=== PATIENT | male | born 1985 | race Caucasian/White ===

== ENCOUNTER 2024-01-05 10:39 | Emergency (ER) | payer BC ==
[2024-01-05 11:28] LABS: #Basophils 0.1 thou/uL (0.0-0.2); #Eosinphils 0.2 thou/uL (0.0-0.7); #Lymphocytes 1.4 thou/uL (1.20-3.40); #Monocytes 0.5 thou/uL (0.11-0.59); #Neutrophils 2.7 thou/uL (1.40-6.50); %Basophils 1.9 % (0.0-1.0); %Eosinophils 3.1 % (0.0-10.0); %Lymphocytes 29.2 % (21.0-51.0); %Monocytes 10.5 % (0.0-10.0); %Neutrophils 55.4 % (42.0-75.0); Hematocrit 43.6 % (42.0-52.0); Hemoglobin 13.6 g/dL (14.0-18.0); Mean Corpuscular HGB CONC 31.3 g/dL (32.0-36.0); Mean Corpuscular Hemoglobin 27.7 pg (27.0-31.0); Mean Corpuscular Volume 88.5 fl (78.0-98.0); Mean Platelet Volume 6.8 fL (7.4-10.4); Platelet Count 208 10x3/uL (130-400); Red Blood Cell (RBC) Count 4.93 mill/uL (4.70-6.10); White Blood Cell (WBC) Count 4.9 10x3/uL (4.8-10.8)
[2024-01-05 11:43] LABS: ALT (SGPT) 18 U/L (8-55); AST (SGOT) 15 U/L (5-34); Albumin 4.1 g/dL (3.5-5.0); Alkaline Phosphatase 68 U/L (40-110); Anion Gap 18 mmol/L (10-20); BUN (Urea Nitrogen) 11 mg/dL (8.9-20.6); Bilirubin, Total 0.7 mg/dL (0.2-1.2); Calc. Creatinine Clearance 0 mL/min (70-130); Calcium 9.4 mg/dL (7.8-10.44); Carbon Dioxide 21 mmol/L (22-29); Chloride 99 mmol/L (98-107); Estimated GFR 89; Globulin 2.6 g/dL (2.4-3.5); Magnesium 1.9 mg/dL (1.6-2.6); Potassium 4.2 mmol/L (3.5-5.1); Protein, Total 6.7 g/dL (6.0-8.3); Sodium 134 mmol/L (136-145)
[2024-01-05 11:44] LABS: Glucose 509 mg/dL (70-105)
[2024-01-05] MEDS ORDERED: Piperacillin/Tazobactam 4.5 GM VIAL ONE (11:56)
[2024-01-05] MEDS ORDERED: Insulin Regular, Human 100 UNIT/ML 10 ML VIAL ONE (11:56)
[2024-01-05] MEDS ORDERED: Sodium Chloride 0.9% 100 ML ONE (11:57)
[2024-01-05] MEDS ORDERED: Vancomycin 1 GM VIAL ONE (12:43)
[2024-01-05] MEDS ORDERED: Sodium Chloride 0.9% 250 ML 500 ML ONE (12:44)
== END 2024-01-05 17:00 | disposition short-term general hospital (02) ==
LOC: MADERS 10:39
DX: E11.621 Type 2 diabetes mellitus with foot ulcer (principal); L97.419 Non-pressure chronic ulcer of right heel and midfoot with unspecified severity; I10 Essential (primary) hypertension; E11.40 Type 2 diabetes mellitus with diabetic neuropathy, unspecified; F17.210 Nicotine dependence, cigarettes, uncomplicated; E78.5 Hyperlipidemia, unspecified; Z79.84 Long term (current) use of oral hypoglycemic drugs; Z79.899 Other long term (current) drug therapy
CPT/HCPCS: 36416; 80053; 83605; 83735; 85025; 86140; 87040; 87070; 87077; 87186; 87205; 96365; 96366; 96367; 96375; J1815; J2543; J3370; J3490; J7050

== ENCOUNTER 2024-04-17 08:54 | Outpatient (CLI) | payer BC | END 2024-04-17 08:55 | disposition home or self-care (01) | LOC: MADRAD 08:54 | PROVIDERS: ATTEND Nurse Practitioner Family | DX: Z01.818 Encounter for other preprocedural examination (principal) | CPT/HCPCS: 71046 ==